=== PATIENT | female | born 1985 | race Caucasian/White ===

== ENCOUNTER 2017-09-24 08:29 | Emergency (ER) | payer BC, OTHER ==
[2017-09-24 09:36] LABS: Absolute Lymphocytes (CBC) 1.7 K/uL (0.7-4.9); Absolute Monocytes 0.4 K/uL (0.1-1.3); Absolute Neutrophil 3.5 K/uL (1.8-8.0); Basophils % 0.7 % (0-1.3); Eosinophils % 0.7 % (0-4.4); Hematocrit 43.1 % (36.0-45.0); Lymphocytes % 29.4 % (15.3-44.8); MCH 30.7 pg (27.0-35.0); MCV 92.6 fL (80-100); MPV 10.2 fL (7.6-11.3); Monocytes % 7.2 % (3.3-12.3); RBC Red Blood Cell Count 4.66 M/uL (3.86-4.86)
[2017-09-24 09:42] LABS: Urine Blood 2+ (NEG); Urine Glucose NEGATIVE (NEG); Urine Protein TRACE (NEG)
[2017-09-24 09:46] LABS: Urine Amorphous Sediment 2+ /HPF (NONE SEEN); Urine Bacteria <20 /HPF (<20); Urine Culture Reflex Order NOT NEEDED; Urine RBC <5 /HPF (NONE SEEN)
[2017-09-24 09:54] LABS: Potassium 3.2 mEq/L (3.6-5.0)
[2017-09-24 09:55] LABS: Albumin 4.3 g/dL (3.2-5.5); Bilirubin Direct 0.1 mg/dL (0-0.2); Bilirubin Total 1.1 mg/dL (0.3-1.2); Protein, Total 7.1 g/dL (6.0-8.3)
--- NOTE | 2017-09-24 11:41 | RAD REPORT ---
EXAM DESCRIPTION: CT - Abdomen Pelvis W Contrast - 09/24/2017 11:25 am CLINICAL HISTORY: Abdominal pain. Diarrhea COMPARISON: May 2016 TECHNIQUE: Computed axial tomography of the abdomen and pelvis was obtained. 100 cc Isovue-300 is ad ministered intravenously. Oral contrast was given. All CT scans are performed using dose optimization technique as appropriate and may include automated exposure control or mA/KV adjustment according to patient size. FINDINGS: The liver, spleen, pancreas, adrenals and kidneys appear unremarkable. The appendix is normal caliber. There is no evidence of diverticulitis The wall of the proximal ascending colon appears thickened. Small umbilical hernia is present IMPRESSION: Apparent thickening of the wall of the proximal ascending colon may be secondary to infl ammation or mass.
--- NOTE | 2017-09-24 12:03 | ER ---
Nurse's Notes [facility] Name: Leadnro Oneill Age: 32 yrs Sex: Female : 1985 Arrival Date: 09/24/2017 Time: 08:35 Bed 24 Private MD: Diagnosis: Colitis Presentation: 09/24 08:59 Presenting complaint: Patient states: since 0130 this morning has had bad stomach pain, iw c/o LUQ pain radiating to mid abd, also has had diarrhea, pain described as burning and shooting pain, constant, rates pain 7/10. Transition of care: patient was not received from another setting of care. Onset of symptoms was September 24, 2017. Initial Sepsis Screen: Does the patient meet any 2 criteria? No. Patient's initial sepsis screen is negative. Does the patient have a suspected source of infection? No. Patient's initial sepsis screen is negative. Care prior to arrival: None. 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 - Social history:: Smoking status: Patient/guardian denies using tobacco. - Family history:: not pertinent. - Hospitalizations: : No recent hospitalization is reported. Screenin:26 Abuse screen: Denies threats or abuse. Nutritional screening: No deficits noted. la1 Tuberculosis screening: No symptoms or risk factors identified. Fall Risk None identified. Assessment: 09:26 General: Appears in no apparent distress. Behavior is calm. Pain: Complains of pain in la1 right lower quadrant and left lower quadrant Pain currently is 5 out of 10 on a pain scale. Neuro: Level of Consciousness is awake, alert, obeys commands, Oriented to person, place, time, situation. Cardiovascular: Capillary refill < 3 seconds Patient's skin is warm and dry. Respiratory: Airway is patent Respiratory effort is even, unlabored, Respiratory pattern is regular, symmetrical, Breath sounds are clear bilaterally. GI: Bowel sounds present X 4 quads. Abd is soft X 4 quads Abdomen is tender to palpation in right lower quadrant and left lower quadrant Reports diarrhea, Patient currently denies nausea, vomiting. : No signs and/or symptoms were reported regarding the genitourinary system. 10:17 Reassessment: Patient appears in no apparent distress at this time. No changes from la1 previously documented assessment. Patient and/or family updated on plan of care and expected duration. Pain level reassessed. 11:02 Reassessment: Patient appears in no apparent distress at this time. No changes from la1 previously documented assessment. Patient and/or family updated on plan of care and expected duration. Pain level reassessed. Vital Signs: 09:01 BP 142 / 94; Pulse 71; Resp 16; Temp 98.4; Pulse Ox 99% on R/A; Weight 78.47 kg; Height iw 5 ft. (152.40 cm); Pain 7/10; 11:40 BP 131 / 92; Pulse 64; Resp 19; Pulse Ox 100% on R/A; la1 09:01 Body Mass Index 33.79 (78.47 kg, 152.40 cm) iw ED Course: 08:35 Patient arrived in ED. mr 09:01 Triage completed. iw 09:01 Arm band placed on. iw 09:04 Jered Jon MD is Attending Physician. rn 09:26 Alex Mccarthy RN is Primary Nurse. la1 09:26 No provider procedures requiring assistance completed. Inserted saline lock: 20 gauge la1 in left antecubital area, using aseptic technique. Blood collected. 09:27 Bed in low position. Call light in reach. la1 11:25 CT Abd/Pelvis - W/Contrast In Process Unspecified. EDMS 12:15 IV discontinued, intact, bleeding controlled, No redness/swelling at site. Pressure la1 dressing applied. Administered Medications: 12:01 Not Given (Other Intervention Used): Flagyl 500 mg 100 ml IVPB at 200 ml/hr once over la1 30 mins 12:15 Drug: Cipro 500 mg Route: PO; la1 12:15 Follow up: Response: Medication administered at discharge. la1 12:15 Drug: Flagyl 500 mg Route: PO; la1 12:15 Follow up: Response: Medication administered at discharge. la1 Outcome: 12:03 Discharge ordered by . rn 12:15 Discharged to home ambulatory. la1 12:15 Condition: stable 12:15 Discharge instructions given to patient, Instructed on discharge instructions, follow up and referral plans. medication usage, Demonstrated understanding of instructions, follow-up care, medications, Prescriptions given X 3. 12:15 Patient left the ED. la1 Signatures: Dispatcher [employer] Gayle Deleon Irene, RN Jered De Los Santos MD MD rn Attema, Lee, RN RN la1
--- NOTE | 2017-09-24 12:04 | EDPHYS ---
Physician Documentation [facility] Name: Leandro Oneill Age: 32 yrs Sex: Female : 1985 Arrival Date: 09/24/2017 Time: 08:35 Bed 24 Private MD: ED Physician Jered Jon HPI: 09/24 09:27 This 32 yrs old Female presents to ER via Ambulatory with complaints of rn Abdominal Pain, Diarrhea. 09:27 The patient presents to the emergency department with nausea, diarrhea, abdominal pain, rn of the left upper quadrant, right lower quadrant and left lower quadrant. Onset: The symptoms/episode began/occurred yesterday. Possible causes: unknown. The symptoms are aggravated by movement, pressure. Severity of symptoms: At their worst the symptoms were moderate in the emergency department the symptoms have improved. The patient has experienced similar episodes in the past. Reports left sided abd pain that began yesterday while running 10 miles, also started keto diet, + diarrhea, non-bloody, no fever/vomiting, has had colonoscopy with biopsy due to previous GI issues and was negative. . 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 - Social history:: Smoking status: Patient/guardian denies using tobacco. - Family history:: not pertinent. - Hospitalizations: : No recent hospitalization is reported. ROS: 09:27 Constitutional: Negative for fever, chills, and weight loss, Eyes: Negative for injury, rn pain, redness, and discharge, Cardiovascular: Negative for chest pain, palpitations, and edema, Respiratory: Negative for shortness of breath, cough, wheezing, and pleuritic chest pain, Abdomen/GI: Negative for vomiting, and constipation, Back: Negative for injury and pain, MS/Extremity: Negative for injury and deformity, Skin: Negative for injury, rash, and discoloration, Neuro: Negative for headache, weakness, numbness, tingling, and seizure. Exam: 09:27 Constitutional: This is a well developed, well nourished patient who is awake, alert, rn and in no acute distress. Head/Face: Normocephalic, atraumatic. Eyes: Pupils equal round and reactive to light, extra-ocular motions intact. Lids and lashes normal. Conjunctiva and sclera are non-icteric and not injected. Cornea within normal limits. Periorbital areas with no swelling, redness, or edema. Neck: Trachea midline, no thyromegaly or masses palpated, and no cervical lymphadenopathy. Supple, full range of motion without nuchal rigidity, or vertebral point tenderness. No Meningismus. Cardiovascular: Regular rate and rhythm with a normal S1 and S2. No gallops, murmurs, or rubs. Normal PMI, no JVD. No pulse deficits. Respiratory: Lungs have equal breath sounds bilaterally, clear to auscultation and percussion. No rales, rhonchi or wheezes noted. No increased work of breathing, no retractions or nasal flaring. Abdomen/GI: soft, + tender LUQ/LLQ/RLQ, no rebound, no masses Skin: Warm, dry with normal turgor. Normal color with no rashes, no lesions, and no evidence of cellulitis. MS/ Extremity: Pulses equal, no cyanosis. Neurovascular intact. Full, normal range of motion. Equal circumference. Neuro: Awake and alert, GCS 15, oriented to person, place, time, and situation. Cranial nerves II-XII grossly intact. Motor strength 5/5 in all extremities. Sensory grossly intact. Cerebellar exam normal. Normal gait. Vital Signs: 09:01 BP 142 / 94; Pulse 71; Resp 16; Temp 98.4; Pulse Ox 99% on R/A; Weight 78.47 kg; Height iw 5 ft. (152.40 cm); Pain 7/10; 11:40 BP 131 / 92; Pulse 64; Resp 19; Pulse Ox 100% on R/A; la1 09:01 Body Mass Index 33.79 (78.47 kg, 152.40 cm) iw MDM: 09:04 Patient medically screened. rn 12:01 Differential diagnosis: Nonspecific abd pain, gastritis, pancreatitis, diverticulitis, rn viral gastroenteritis, gastroenteritis. Data reviewed: vital signs, nurses notes, lab test result(s), radiologic studies, CT scan, and as a result, I will discharge patient. Counseling: I had a detailed discussion with the patient and/or guardian regarding: the historical points, exam findings, and any diagnostic results supporting the discharge/admit diagnosis, lab results, radiology results, the need for outpatient follow up, to return to the emergency department if symptoms worsen or persist or if there are any questions or concerns that arise at home. Response to treatment: the patient's symptoms have mildly improved after treatment, and as a result, I will discharge patient. Special discussion: Based on the patient's Hx, exam, and Dx evaluation, there is no indication for emergent surgery or inpatient Tx. It is understood by the patient/guardian that if the Sx's persist or worsen they need to return immediately for re-evaluation. I discussed with the patient/guardian in detail that at this point there is no indication for admission to the hospital. It is understood, however, that if the symptoms persist or worsen the patient needs to return immediately for re-evaluation. ED course: Pt with signs of colitis, will treat with abx, has had recent colonoscopy that did not reveal mass or IBD, return precautions given and understood.. 09/24 09:12 Order name: Basic Metabolic Panel; Complete Time: : rn 09/24 09:12 Order name: CBC with Diff; Complete Time: : rn 09/24 09:12 Order name: Creatinine for Radiology; Complete Time: : rn 09/24 09:12 Order name: Hepatic Function; Complete Time: : rn 09/24 09:12 Order name: Lipase; Complete Time: : rn 09/24 09:12 Order name: Urine Microscopic Only; Complete Time: : rn 09/24 09:12 Order name: Urine Test (obtain specimen); Complete Time: : rn 09/24 09:12 Order name: IV Saline Lock; Complete Time: : rn 09/24 09:12 Order name: CT Abd/Pelvis - W/Contrast; Complete Time: 11:43 rn 09/24 09:25 Order name: Urine Dipstick--Ancillary (enter results); Complete Time: : bd 09/24 09:25 Order name: Urine --Ancillary (enter results); Complete Time: : bd 09/24 09:12 Order name: Labs collected and sent; Complete Time: : rn 09/24 09:12 Order name: Urine Dipstick-Ancillary (obtain specimen); Complete Time: 09:27 rn Administered Medications: 12:01 Not Given (Other Intervention Used): Flagyl 500 mg 100 ml IVPB at 200 ml/hr once over la1 30 mins 12:15 Drug: Cipro 500 mg Route: PO; la1 12:15 Follow up: Response: Medication administered at discharge. la1 12:15 Drug: Flagyl 500 mg Route: PO; la1 12:15 Follow up: Response: Medication administered at discharge. la1 Disposition: 09/24/17 12:03 Discharged to Home. Impression: Colitis. - Condition is Stable. - Discharge Instructions: Diarrhea, Abdominal Pain, Women. - Prescriptions for Flagyl 500 mg Oral Tablet - take 1 tablet by ORAL route every 8 hours for 10 days; 30 tablet. Cipro 500 mg Oral Tablet - take 1 tablet by ORAL route every 12 hours for 10 days; 20 tablet. Zofran ODT 4 mg Oral tablet,disintegrating - place 1 tablet by TRANSLINGUAL route every 8-10 hours As needed; 20 tablet. - Medication Reconciliation Form, Thank You Letter, Antibiotic Education, Prescription Opioid Use form. - Follow up: Private Physician; When: As needed; Reason: Recheck today's complaints, Re-evaluation by your physician. - Problem is new. - Symptoms have improved. Signatures: Dispatcher [employer] Yandy Hilton RN RN iw Nieto, Roman, MD MD rn Attema, Lee, RN RN la1 Corrections: (The following items were deleted from the chart) 12:15 12:03 09/24/2017 12:03 Discharged to Home. Impression: Colitis. Condition is Stable. la1 Forms are Medication Reconciliation Form, Thank You Letter, Antibiotic Education, Prescription Opioid Use. Follow up: Private Physician; When: As needed; Reason: Recheck today's complaints, Re-evaluation by your physician. Problem is new. Symptoms have improved. rn
[2017-09-24] MEDS ORDERED: metroNIDAZOLE 500 MG TABLET ONE (12:07)
[2017-09-24] MEDS ORDERED: CIPROFLOXACIN HCL 500 MG TAB ONE (12:07)
== END 2017-09-24 12:15 | disposition home or self-care (01) ==
LOC: ER 08:29
DX: K52.9 Noninfective gastroenteritis and colitis, unspecified (principal)
CPT/HCPCS: 36415; 74177; 80048; 80076; 81003; 81015; 81025; 83690; 85025; 99284; Q9967